=== PATIENT | male | born 1995 | race Caucasian/White ===

== ENCOUNTER 2020-02-20 17:51 | Emergency (ER) | payer BC ==
[2020-02-20] MEDS: SODIUM CHLORIDE 0.9% 1,000 ML IV STA (18:24)
[2020-02-20] MEDS: ONDANSETRON 4 MG/2 ML VIAL IVP STA (18:25)
[2020-02-20] MEDS: KETOROLAC 15 MG/ML 1 ML VIAL IVP STA (18:27)
[2020-02-20] MEDS: ACETAMINOPHEN TAB 500 MG TAB PO STA (18:30)
[2020-02-20 18:35] LABS: Basophils % (A) 0 %; Eosinophils # (A) 0.1 k/uL (0-0.7); Eosinophils % (A) 1 %; HGB 17.1 gm/dL (13.0-17.5); Hyperchromasia Slight; Lymphocytes % (A) 9 %; MCH 28.7 pg (25.0-35.0); MCHC 34.9 g/dL (31.0-37.0); MCV 82.3 fL (80.0-100.0); Mean Platelet Volume 7.9; Monocytes # (A) 0.4 k/uL (0-1.0); Monocytes % (A) 4 %; Neutrophils # (A) 9.1 k/uL (1.3-7.7); Neutrophils % (A) 84 %; Platelet Count 228 k/uL (150-450); RBC 5.96 m/uL (4.30-5.90); RDW 12.7 % (11.5-15.5); WBC 10.8 k/uL (3.8-10.6)
--- NOTE | 2020-02-20 18:45 | ED ---
General Adult HPI - General Chief complaint: Dizziness Stated complaint: Dizziness, nausea, headache Time Seen by Provider: 02/20/20 18:00 Source: patient Mode of arrival: ambulatory Limitations: no limitations - History of Present Illness Initial comments: Patient is a 24-year-old male presenting to emergency Department with complaints of nausea, headache, right-sided dental pain 2 days. Patient states 2 days ago he started developing right-sided dental pain, was taking Tylenol for it. Patient states the next day, yesterday, he went to urgent care because the dental pain worsened. Patient states they diagnosed him with a right-sided ear infection as well as a dental infection and started him on Augmentin. Patient states he took 2 doses of Augmentin yesterday and through the last 24 hours has developed a worsening headache, nausea and now some light headed, dizziness. Patient denied any fever or chills although he did arrive febrile today. He states he did not feel he had fever yesterday. He denies any coughing, chest pain, shortness of breath, nasal congestion. He denies any recent illnesses. He denies any sick contacts. He states he takes no other medications, he has no pertinent past medical history. He denies any abdominal pain, no dysuria. He has no further complaints at this time. Upon arrival to the ER, his temperature is 100.2, pulse is 119, rest of vitals are normal. - Related Data Home Medications Medication Instructions Recorded Confirmed Amoxicillin/Potassium Clav 1 tab PO Q12H 02/20/20 02/20/20 [Augmentin 875-125 Tablet] [id number] 1 tab PO DAILY PRN 02/20/20 02/20/20 [Excedrin] Ibuprofen [Motrin] 800 mg PO ONCE PRN 02/20/20 02/20/20 Meclizine HCl 25 mg PO Q8H PRN 02/20/20 02/20/20 Previous Rx's Medication Instructions Recorded Meclizine [Antivert] 25 mg PO BID #15 tab 02/20/20 Penicillin V Potassium [Pen Vee K] 500 mg PO QID 5 Days #20 tablet 02/20/20 Allergies Allergy/AdvReac Type Severity Reaction Status Date / Time No Known Allergies Allergy Verified 02/20/20 18:38 Review of Systems ROS Statement: Those systems with pertinent positive or pertinent negative responses have been documented in the HPI. ROS Other: All systems not noted in ROS Statement are negative. Past Medical History Past Medical History: No Reported History History of Any Multi-Drug Resistant Organisms: None Reported Past Surgical History: Orthopedic Surgery Additional Past Surgical History / Comment(s): lt hand Past Psychological History: No Psychological Hx Reported Smoking Status: Never smoker Past Alcohol Use History: None Reported Past Drug Use History: None Reported General Exam - General Exam Comments Initial Comments: GENERAL: Patient is well-developed and well-nourished. Patient is nontoxic and in no acute distress. HEAD: Atraumatic, normocephalic. EYES: Pupils equal round and reactive to light, extraocular movements intact, sclera anicteric, conjunctiva are normal. Eyelids were unremarkable. ENT: TMs normal, nares patent, oropharynx clear without exudates. Moist mucous membranes. There is some erythema of the right upper gumline, no visible dental abscess, pain with palpation of tooth number #1-#2, NECK: Normal range of motion, supple without lymphadenopathy or JVD. LUNGS: Unlabored respirations. Breath sounds clear to auscultation bilaterally and equal. No wheezes rales or rhonchi. HEART: Slightly tachy rate and rhythm without murmurs, rubs or gallops. ABDOMEN: Soft, nontender, normoactive bowel sounds. No guarding, no rebound. No masses appreciated. : Deferred MUSCULOSKELETAL: Normal extremities with adequate strength and normal range of motion, no pitting or edema. No clubbing or cyanosis. NEUROLOGICAL: Patient is alert and oriented x 3. Motor and sensory are also intact. Cranial nerves II through XII grossly intact. Symmetrical smile. Normal speech, normal gait. PSYCH: Normal mood, normal affect. SKIN: Warm, Dry, normal turgor, no rashes or lesions noted. Limitations: no limitations Course Vital Signs 02/20/20 02/20/20 02/20/20 17:58 19:28 20:50 Temperature 100.2 F H 100.4 F H 99.0 F Pulse Rate 119 H 92 89 Respiratory 20 19 18 Rate Blood Pressure 135/80 137/79 130/86 O2 Sat by Pulse 98 98 96 Oximetry Medical Decision Making - Medical Decision Making Patient is a 24-year-old healthy male presenting with right-sided dental pain, nausea, lightheadedness 2 days. Patient was seen at urgent care yesterday and started on Augmentin for possible dental abscess. He states he's been having nausea, lightheadedness with position change and continue dental pain since then. He did arrive febrile 100.2, pulse is 119, rest of vitals were normal. He states he has not had a fever until today. I did check basic labs, white count is 10.8, CRP is less than 5, no other acute abnormality. Rapid Covid and influenza are negative. Patient was given some fluids as well as Toradol, Tylenol and Zofran. He has been resting comfortable in the ER. He states he f eels a lot better. I discussed these findings with the patient. We discussed that his symptoms could be related to the Augmentin medication, it could also be related to dehydration and not eating or drinking at all today. His symptoms could also be related to vertigo. I will discontinue his Augmentin, start him on penicillin VK for dental abscess, he needs to also continue Tylenol or Motrin as needed for fever or pain. I will also give him a trial of meclizine to try for the lightheadedness if it does not improve. Patient is in agreement with this plan of care. He states he does not have a regular doctor, I will give him a referral to a few PCPs. He is stable for discharge. Return parameters were discussed with the patient and he verbalized understanding. - Lab Data Result diagrams: 02/20/20 18:20 02/20/20 18:20 Lab Results 02/20/20 02/20/20 02/20/20 Range/Units 18:20 18:20 19:22 WBC 10.8 H (3.8-10.6) k/uL RBC 5.96 H (4.30-5.90) m/uL Hgb 17.1 (13.0-17.5) gm/dL Hct 49.0 (39.0-53.0) % MCV 82.3 (80.0-100.0) fL MCH 28.7 (25.0-35.0) pg MCHC 34.9 (31.0-37.0) g/dL RDW 12.7 (11.5-15.5) % Plt Count 228 (150-450) k/uL MPV 7.9 Neutrophils % 84 % Lymphocytes % 9 % Monocytes % 4 % Eosinophils % 1 % Basophils % 0 % Neutrophils # 9.1 H (1.3-7.7) k/uL Lymphocytes # 1.0 (1.0-4.8) k/uL Monocytes # 0.4 (0-1.0) k/uL Eosinophils # 0.1 (0-0.7) k/uL Basophils # 0.0 (0-0.2) k/uL Hyperchromasia Slight Sodium 135 L (137-145) mmol/L Potassium 4.1 (3.5-5.1) mmol/L Chloride 100 (98-107) mmol/L Carbon Dioxide 26 (22-30) mmol/L Anion Gap 9 mmol/L BUN 16 (9-20) mg/dL Creatinine 1.01 (0.66-1.25) mg/dL Est GFR (CKD-EPI)AfAm >90 (>60 ml/min/1.73 sqM) Est GFR (CKD-EPI)NonAf >90 (>60 ml/min/1.73 sqM) Glucose 102 H (74-99) mg/dL Calcium 9.8 (8.4-10.2) mg/dL Total Bilirubin 1.2 (0.2-1.3) mg/dL AST 33 (17-59) U/L ALT 67 H (4-49) U/L Alkaline Phosphatase 64 (38-126) U/L C-Reactive Protein <5.0 (<10.0) mg/L Total Protein 8.4 H (6.3-8.2) g/dL Albumin 5.1 H (3.5-5.0) g/dL Coronavirus (PCR) (Not Detectd) Influenza Type A RNA Not Detected (Not Detectd) Influenza Type B (PCR) Not Detected (Not Detectd) 02/20/20 Range/Units 19:22 WBC (3.8-10.6) k/uL RBC (4.30-5.90) m/uL Hgb (13.0-17.5) gm/dL Hct (39.0-53.0) % MCV (80.0-100.0) fL MCH (25.0-35.0) pg MCHC (31.0-37.0) g/dL RDW (11.5-15.5) % Plt Count (150-450) k/uL MPV Neutrophils % % Lymphocytes % % Monocytes % % Eosinophils % % Basophils % % Neutrophils # (1.3-7.7) k/uL Lymphocytes # (1.0-4.8) k/uL Monocytes # (0-1.0) k/uL Eosinophils # (0-0.7) k/uL Basophils # (0-0.2) k/uL Hyperchromasia Sodium (137-145) mmol/L Potassium (3.5-5.1) mmol/L Chloride (98-107) mmol/L Carbon Dioxide (22-30) mmol/L Anion Gap mmol/L BUN (9-20) mg/dL Creatinine (0.66-1.25) mg/dL Est GFR (CKD-EPI)AfAm (>60 ml/min/1.73 sqM) Est GFR (CKD-EPI)NonAf (>60 ml/min/1.73 sqM) Glucose (74-99) mg/dL Calcium (8.4-10.2) mg/dL Total Bilirubin (0.2-1.3) mg/dL AST (17-59) U/L ALT (4-49) U/L Alkaline Phosphatase (38-126) U/L C-Reactive Protein (<10.0) mg/L Total Protein (6.3-8.2) g/dL Albumin (3.5-5.0) g/dL Coronavirus (PCR) Not Detected (Not Detectd) Influenza Type A RNA (Not Detectd) Influenza Type B (PCR) (Not Detectd) Disposition Clinical Impression: Dehydration, Pain, dental, Nausea Disposition: HOME SELF-CARE Condition: Stable Instructions (If sedation given, give patient instructions): Dehydration (ED) Additional Instructions: Please return to the Emergency Department if symptoms worsen or any other concerns. Covid and influenza swab are both negative today. Recommend discontinuing Augmentin, start penicillin as discussed. Continue to alternate between Tylenol and Motrin for fever and/or pain control. Can also try meclizine for any further dizziness. Please follow-up with your regular doctor, I will give you a few referrals. Prescriptions: Meclizine [Antivert] 25 mg PO BID #15 tab Penicillin V Potassium [Pen Vee K] 500 mg PO QID 5 Days #20 tablet Is patient prescribed a controlled substance at d/c from ED?: No Referrals: None,Stated [Primary Care Provider] - 1-2 days Mary Diaz MD [REFERRING] - 1-2 days Krystian Kiran MD [STAFF PHYSICIAN] - 1-2 days
[2020-02-20 18:54] LABS: ALT 67 U/L (4-49); AST 33 U/L (17-59); African American GFR (CKD) >90 (>60 ml/min/1.73 sqM); Albumin 5.1 g/dL (3.5-5.0); Alkaline Phosphatase 64 U/L (38-126); Anion Gap 9 mmol/L; Blood Urea Nitrogen 16 mg/dL (9-20); C Reactive Protein <5.0 mg/L (<10.0); Calcium 9.8 mg/dL (8.4-10.2); Carbon Dioxide 26 mmol/L (22-30); Chloride 100 mmol/L (98-107); Glucose 102 mg/dL (74-99); Non-African American GFR(CKD) >90 (>60 ml/min/1.73 sqM); Potassium 4.1 mmol/L (3.5-5.1); Sodium 135 mmol/L (137-145); Total Bilirubin 1.2 mg/dL (0.2-1.3); Total Protein 8.4 g/dL (6.3-8.2)
[2020-02-20] MEDS: PENICILLIN V POTASSIUM 250 MG TAB PO STA (20:44)
[2020-02-20 20:52] VITALS: BP 130/86; PULSE 89; RESP 18; TEMP 99
== END 2020-02-20 20:52 | disposition home or self-care (01) ==
LOC: EC 17:51
DX: E86.0 Dehydration (principal); K08.89 Other specified disorders of teeth and supporting structures; R11.0 Nausea
CPT/HCPCS: 36415; 80053; 85025; 86140; 87502; 87635; 99284; 96374; 96375; 96361; J2405; J1885